=== PATIENT | female | born 1945 | race Caucasian/White ===

== ENCOUNTER 2021-05-25 09:05 | Day surgery (SDC) | payer MEDICARE ==
[2021-05-25] MEDS ORDERED: Sodium Chloride 0.9% 10 ML Syringe FLUSH PRN (10:00)
== END 2021-05-25 10:28 | disposition home or self-care (01) ==
LOC: JP.SDS 09:05
PROVIDERS: ATTEND Ophthalmology
DX: H25.12 Age-related nuclear cataract, left eye (principal); K21.9 Gastro-esophageal reflux disease without esophagitis

== ENCOUNTER 2021-06-08 08:55 | Day surgery (SDC) | payer MEDICARE ==
[2021-06-08] MEDS ORDERED: Sodium Chloride 0.9% 10 ML Syringe FLUSH PRN (10:30)
== END 2021-06-08 10:41 | disposition home or self-care (01) ==
LOC: JP.SDS 08:55
PROVIDERS: ATTEND Ophthalmology
DX: H25.11 Age-related nuclear cataract, right eye (principal); K21.9 Gastro-esophageal reflux disease without esophagitis; E66.9 Obesity, unspecified
CPT/HCPCS: V2632